=== PATIENT | female | born 1995 | race Hispanic/Latino ===

== ENCOUNTER 2018-02-12 10:44 | Emergency (ER) | payer MEDICAID ==
[2018-02-12] MEDS ORDERED: ONDANSETRON ODT 4 MG TAB ONE (11:01)
[2018-02-12 11:29] LABS: RAPID GROUP A STREP NEGATIVE (NEGATIVE)
[2018-02-12 11:31] LABS: APPEARANCE,URINE Cloudy (CLEAR); BILIRUBIN,URINE Negative (NEGATIVE); COLOR,URINE Dark Yellow (YELLOW); GLUCOSE, URINE (UA) Negative (NEGATIVE); KETONES,URINE >=160 mg/dL (NEGATIVE); LEUKOCYTE ESTERASE ,URINE Moderate (NEGATIVE); NITRATE,URINE Negative (NEGATIVE); OCCULT BLOOD,URINE Negative (NEGATIVE); PH,URINE 5.5 (5.0-8.0); PROTEIN,URINE Trace (NEGATIVE)
[2018-02-12 11:58] LABS: BACTERIA,URINE Few /HPF (None Seen); RBC,URINE 0-1 /HPF (0-1); SQUAMOUS EPITHELIAL CELL,UR Many /HPF (0-2)
[2018-02-12 11:59] LABS: MUCUS,URINE Many LPF (None Seen)
== END 2018-02-12 11:56 | disposition home or self-care (01) ==
LOC: EDH 10:44
DX: N39.0 Urinary tract infection, site not specified (principal); R05 Cough
CPT/HCPCS: 81001; 87804; 87880